=== PATIENT | female | born 1995 | race Caucasian/White ===

== ENCOUNTER 2016-05-20 23:19 | Emergency (ER) | payer SELFPAY ==
[~2016-05-20] VITALS: Ht 170.2 cm; Wt 62.8 kg
[~2016-05-20 23:19] MED LIST: NO HOME MEDICATIONS; PEN-VEE K,VEET500 MG PO; ULTRAM50 MG PO; ZOFRAN ODT4 MG PO
[2016-05-20 23:53] LABS: ADD MIUA? YES; BILIRUBIN NEGATIVE; BLOOD NEGATIVE; COLOR YELLOW ((YELLOW)); GLUCOSE (STRIP) NEGATIVE; KETONES 5; LEUKOCYTES TRACE; NITRITE NEGATIVE; PROTEIN (STRIP) 30; SPECIFIC GRAVITY 1.026 (1.000-1.030); UROBILINOGEN 0.2 MG/DL (0.2-1.0)
[2016-05-21 00:01] LABS: BACTERIA RARE /HPF; EPITHELIAL CELLS 2+ /HPF; MUCUS 2+ /LPF; RED BLOOD CELLS 0-5 /HPF (0-5)
[2016-05-21 00:03] LABS: EOSINOPHIL (%) 3.4 % (0-5); EOSINOPHIL COUNT 0.3 K/uL (0-0.3); HEMATOCRIT 36.1 % (36.0-46.0); IMMATURE GRANULOCYTE (%) 0.2 % (0.0-0.7); INSTRUMENT ABS NEUTROPHIL CT 4.6 K/uL; LYMPHOCYTE COUNT 2.8 K/uL (1.0-2.8); MCH 30.8 PG (29.0-34.0); MCHC 34.1 G/DL (30.0-36.0); MCV 90.5 FL (83-99); MEAN PLAT.VOLUME 10.1 uM^3 (9.5-12.4); MONOCYTE (%) 5.2 % (3-12); MONOCYTE COUNT 0.4 K/uL (0-0.8); NEUTROPHIL COUNT 4.6 K/uL (1.8-6.4); PLATELET COUNT 258 K/uL (156-360); RBC DIS.WIDTH-CV 11.8 % (11.8-14.6); RBC DIS.WIDTH-SD 39.3 % (39-53); RED BLOOD COUNT 3.99 M/uL (3.80-5.20); WHITE BLOOD COUNT 8.2 K/uL (4.1-10.2)
[2016-05-21 00:12] LABS: CHLORIDE 106 mEq/L (99-109); SODIUM 139 mEq/L (136-147)
[2016-05-21 00:14] LABS: GLUCOSE 87 mg/dL (70-99)
[2016-05-21 00:15] LABS: ANION GAP 8 MEQ/L (2-14)
[2016-05-21 00:16] LABS: TOTAL BILIRUBIN 0.2 mg/dL (0.0-1.0)
[2016-05-21 00:17] LABS: ALKALINE PHOSPHATASE 51 IU/L (3-129)
[2016-05-21 00:18] LABS: GFR ESTIMATE (CALCULATED) > 59 mL/min/
[2016-05-21 00:19] LABS: UREA NITROGEN (BUN) 8 mg/dL (9-23)
[2016-05-21 00:21] LABS: LIPASE 16 U/L (1.0-51.0)
[2016-05-21] MEDS ORDERED: VIBRAMYCIN100 MG PO (00:38)
[2016-05-21] MEDS ORDERED: MOTRIN600 MG PO (00:38)
[2016-05-21] MEDS ORDERED: ULTRACET1 TABLET PO (00:38)
[2016-05-21] MEDS ORDERED: FLAGYL500 MG PO (00:50)
[2016-05-21 01:01] VITALS: BP 114/73
[2016-05-21 12:15] LABS: CHLAMYDIA TRACHOMATIS POSITIVE; NEISSERIA GONORRHOEAE NEGATIVE
== END 2016-05-21 01:02 | disposition home or self-care (01) ==
LOC: RME 23:19 → EME 23:19 → RME 05-21 01:02
PROVIDERS: Physician Assistant
DX: N73.9 Female pelvic inflammatory disease, unspecified (principal); R30.0 Dysuria; F17.200 Nicotine dependence, unspecified, uncomplicated
CPT/HCPCS: 80053; 81003; 83690; 85025; 87086; 87210; 87491; 87591; 99281; 99285; J0696

== ENCOUNTER 2016-09-11 15:48 | Emergency (ER) | payer SELFPAY ==
[~2016-09-11] VITALS: Ht 170.2 cm; Wt 64.6 kg
[~2016-09-11 15:48] MED LIST changes: +FLAGYL500 MG PO; +MOTRIN600 MG PO; +ULTRACET1 TABLET PO; +VIBRAMYCIN100 MG PO
[2016-09-11 16:45] LABS: HEMATOCRIT 36.4 % (36.0-46.0); MCHC 35.2 G/DL (30.0-36.0); MEAN PLAT.VOLUME 9.4 uM^3 (9.5-12.4); PLATELET COUNT 239 K/uL (156-360); RBC DIS.WIDTH-CV 12.2 % (11.8-14.6); WHITE BLOOD COUNT 6.7 K/uL (4.1-10.2)
[2016-09-11 16:53] LABS: CHLORIDE 107 mEq/L (99-109); POTASSIUM 3.9 mEq/L (3.7-5.4); SODIUM 140 mEq/L (136-147)
[2016-09-11 16:55] LABS: GLUCOSE 85 mg/dL (70-99)
[2016-09-11 16:56] LABS: ANION GAP 7 MEQ/L (2-14)
[2016-09-11 16:58] LABS: GFR ESTIMATE (CALCULATED) > 59 mL/min/
[2016-09-11 16:59] LABS: UREA NITROGEN (BUN) 6 mg/dL (9-23)
[2016-09-11 18:55] LABS: ADD MIUA? YES; BILIRUBIN NEGATIVE; BLOOD LARGE; GLUCOSE (STRIP) NEGATIVE; KETONES NEGATIVE; LEUKOCYTES MODERATE; NITRITE NEGATIVE; PROTEIN (STRIP) 100; SPECIFIC GRAVITY 1.006 (1.000-1.030); UROBILINOGEN 0.2 MG/DL (0.2-1.0)
[2016-09-11 18:58] LABS: COLOR RED ((YELLOW))
[2016-09-11 19:15] LABS: RED BLOOD CELLS 30-40 /HPF (0-5); WHITE BLOOD CELLS 15-20 /HPF (0-5)
[2016-09-11 19:16] LABS: BACTERIA 2+ /HPF; CASTS NONE SEEN /LPF; CRYSTALS NONE SEEN; EPITHELIAL CELLS 3+ /HPF; MUCUS RARE /LPF; UCUL ADDED? YES
[2016-09-11] MEDS ORDERED: MACROBID100 MG PO (20:35)
[2016-09-11] MEDS ORDERED: PERCOCET 5/31 TABLET PO (20:36)
[2016-09-11 20:41] VITALS: BP 116/74
== END 2016-09-11 20:52 | disposition home or self-care (01) ==
LOC: EME 15:48
DX: O03.9 Complete or unspecified spontaneous abortion without complication (principal); N93.9 Abnormal uterine and vaginal bleeding, unspecified; R11.2 Nausea with vomiting, unspecified; R42 Dizziness and giddiness; F17.200 Nicotine dependence, unspecified, uncomplicated
CPT/HCPCS: 76801; 80048; 81003; 84702; 85027; 86850; 86900; 86901; 87086; 99281; 99285; J2788; J3010; J7030

== ENCOUNTER 2016-09-13 20:23 | Emergency (ER) | payer SELFPAY ==
[~2016-09-13] VITALS: Ht 170.2 cm; Wt 63.5 kg
[~2016-09-13 20:23] MED LIST changes: +MACROBID100 MG PO; +PERCOCET 5/31 TABLET PO
[2016-09-13 21:07] LABS: HEMATOCRIT 32.5 % (36.0-46.0); MCH 31.6 PG (29.0-34.0); MCHC 35.1 G/DL (30.0-36.0); MEAN PLAT.VOLUME 9.7 uM^3 (9.5-12.4); PLATELET COUNT 210 K/uL (156-360); RBC DIS.WIDTH-CV 12.1 % (11.8-14.6); RBC DIS.WIDTH-SD 40.1 % (39-53); RED BLOOD COUNT 3.61 M/uL (3.80-5.20); WHITE BLOOD COUNT 10.5 K/uL (4.1-10.2)
[2016-09-13 21:15] LABS: CHLORIDE 105 mEq/L (99-109); POTASSIUM 3.2 mEq/L (3.7-5.4); SODIUM 138 mEq/L (136-147)
[2016-09-13 21:18] LABS: ANION GAP 10 MEQ/L (2-14)
[2016-09-13 21:20] LABS: GFR ESTIMATE (CALCULATED) > 59 mL/min/
[2016-09-13 21:21] LABS: UREA NITROGEN (BUN) 5 mg/dL (9-23)
[2016-09-13 21:24] LABS: GLUCOSE 107 mg/dL (70-99)
[2016-09-13 21:29] LABS: QUANTITATIVE HCG 126.4 MIU/ML
[2016-09-13 22:11] LABS: ADD MIUA? YES; BILIRUBIN NEGATIVE; BLOOD LARGE; COLOR YELLOW ((YELLOW)); GLUCOSE (STRIP) NEGATIVE; KETONES NEGATIVE; LEUKOCYTES MODERATE; NITRITE NEGATIVE; PROTEIN (STRIP) NEGATIVE; SPECIFIC GRAVITY 1.005 (1.000-1.030); UROBILINOGEN 0.2 MG/DL (0.2-1.0)
[2016-09-13 22:16] LABS: BACTERIA RARE /HPF; EPITHELIAL CELLS RARE /HPF; MUCUS TRACE /LPF; RED BLOOD CELLS 40-50 /HPF (0-5); UCUL ADDED? NO
[2016-09-14 00:14] VITALS: BP 109/81
== END 2016-09-14 00:15 | disposition home or self-care (01) ==
LOC: EME 20:23
PROVIDERS: Physician Assistant
DX: O03.4 Incomplete spontaneous abortion without complication (principal); R55 Syncope and collapse; F17.200 Nicotine dependence, unspecified, uncomplicated
CPT/HCPCS: 76801; 80048; 81003; 84702; 85027; 86870; 86900; 86901; 86905; 86920; 99281; 99285; J2270; J7030

== ENCOUNTER 2016-09-17 08:02 | Day surgery (SDC) | payer SELFPAY ==
[~2016-09-17] VITALS: Ht 170.2 cm; Wt 63.0 kg
[2016-09-17 08:41] VITALS: BP 99/58
[2016-09-17 12:10] VITALS: BP 92/54
[2016-09-17 13:15] VITALS: BP 84/60
[2016-09-17 13:50] VITALS: BP 88/62
== END 2016-09-17 14:10 | disposition home or self-care (01) ==
LOC: SDC 08:02
PROC: 10D17ZZ Extraction of Products of Conception, Retained, Via Natural or Artificial Opening (ICD-10-PCS; principal; 2016-09-17)
DX: O03.4 Incomplete spontaneous abortion without complication (principal); Z3A.08 8 weeks gestation of pregnancy; F17.210 Nicotine dependence, cigarettes, uncomplicated
CPT/HCPCS: 86870; 86900; 86901; 86905; 86920; 88305; J0690; J1100; J1170; J1200; J1885; J2250; J2405; J3010; J7120

== ENCOUNTER 2016-09-19 19:57 | Emergency (ER) | payer SELFPAY ==
[~2016-09-19] VITALS: Ht 170.2 cm; Wt 64.8 kg
[2016-09-19 21:28] LABS: HEMATOCRIT 31.1 % (36.0-46.0); MCH 31.3 PG (29.0-34.0); MCHC 34.4 G/DL (30.0-36.0); MCV 90.9 FL (83-99); MEAN PLAT.VOLUME 9.2 uM^3 (9.5-12.4); PLATELET COUNT 193 K/uL (156-360); RBC DIS.WIDTH-CV 12.3 % (11.8-14.6); RBC DIS.WIDTH-SD 40.8 % (39-53); RED BLOOD COUNT 3.42 M/uL (3.80-5.20); WHITE BLOOD COUNT 8.1 K/uL (4.1-10.2)
[2016-09-19 21:43] LABS: CHLORIDE 101 mEq/L (99-109); POTASSIUM 3.4 mEq/L (3.7-5.4)
[2016-09-19 21:44] LABS: SODIUM 137 mEq/L (136-147)
[2016-09-19 21:46] LABS: GLUCOSE 98 mg/dL (70-99)
[2016-09-19 21:47] LABS: ANION GAP 10 MEQ/L (2-14)
[2016-09-19 21:48] LABS: TOTAL BILIRUBIN 0.1 mg/dL (0.0-1.0)
[2016-09-19 21:49] LABS: ALKALINE PHOSPHATASE 57 IU/L (3-129); GFR ESTIMATE (CALCULATED) > 59 mL/min/
[2016-09-19 21:50] LABS: UREA NITROGEN (BUN) 3 mg/dL (9-23)
[2016-09-19 21:53] LABS: LIPASE 6 U/L (1.0-51.0)
[2016-09-19 22:00] LABS: QUANTITATIVE HCG 20.3 MIU/ML
[2016-09-19 22:59] LABS: SALICYLATE < 5.0 MG/DL (15-30)
[2016-09-20 00:56] LABS: ADD MIUA? YES; BILIRUBIN NEGATIVE; BLOOD LARGE; COLOR YELLOW ((YELLOW)); GLUCOSE (STRIP) NEGATIVE; KETONES NEGATIVE; LEUKOCYTES LARGE; NITRITE NEGATIVE; PROTEIN (STRIP) NEGATIVE; SPECIFIC GRAVITY 1.006 (1.000-1.030); UROBILINOGEN 0.2 MG/DL (0.2-1.0)
[2016-09-20 01:08] LABS: BACTERIA RARE /HPF; EPITHELIAL CELLS RARE /HPF; MUCUS TRACE /LPF; RED BLOOD CELLS 40-50 /HPF (0-5); UCUL ADDED? YES; WHITE BLOOD CELLS TNTC /HPF (0-5)
[2016-09-20] MEDS ORDERED: KEFLEX250 MG PO (01:30)
[2016-09-20] MEDS ORDERED: NORCO 5/3251 TABLET PO (01:30)
[2016-09-20 02:03] VITALS: BP 101/66
== END 2016-09-20 02:05 | disposition home or self-care (01) ==
LOC: EME 19:57
DX: N39.0 Urinary tract infection, site not specified (principal); N83.202 Unspecified ovarian cyst, left side; F17.200 Nicotine dependence, unspecified, uncomplicated
CPT/HCPCS: 74177; 76856; 80053; 81003; 83690; 84702; 85027; 87086; 99281; 99285; G0480; J2270; J2405; J7030

== ENCOUNTER 2016-09-25 15:16 | Emergency (ER) | payer SELFPAY ==
[~2016-09-25] VITALS: Ht 170.2 cm; Wt 62.8 kg
[~2016-09-25 15:16] MED LIST changes: +KEFLEX250 MG PO; +NORCO 5/3251 TABLET PO
[2016-09-25 17:11] LABS: ADD MIUA? YES; BILIRUBIN NEGATIVE; BLOOD MODERATE; COLOR AMBER ((YELLOW)); GLUCOSE (STRIP) NEGATIVE; KETONES NEGATIVE; LEUKOCYTES LARGE; NITRITE NEGATIVE; PROTEIN (STRIP) 100; SPECIFIC GRAVITY 1.014 (1.000-1.030); UROBILINOGEN 0.2 MG/DL (0.2-1.0)
[2016-09-25 17:18] LABS: HEMATOCRIT 33.4 % (36.0-46.0); MCH 31.4 PG (29.0-34.0); MCHC 34.4 G/DL (30.0-36.0); MCV 91.3 FL (83-99); MEAN PLAT.VOLUME 9.1 uM^3 (9.5-12.4); PLATELET COUNT 290 K/uL (156-360); RBC DIS.WIDTH-CV 12.1 % (11.8-14.6); RBC DIS.WIDTH-SD 40.9 % (39-53); RED BLOOD COUNT 3.66 M/uL (3.80-5.20); WHITE BLOOD COUNT 9.9 K/uL (4.1-10.2)
[2016-09-25 17:19] LABS: CHLORIDE 104 mEq/L (99-109); SODIUM 139 mEq/L (136-147)
[2016-09-25 17:21] LABS: GLUCOSE 92 mg/dL (70-99)
[2016-09-25 17:22] LABS: ANION GAP 11 MEQ/L (2-14)
[2016-09-25 17:25] LABS: ALKALINE PHOSPHATASE 70 IU/L (3-129); GFR ESTIMATE (CALCULATED) > 59 mL/min/
[2016-09-25 17:26] LABS: UREA NITROGEN (BUN) 5 mg/dL (9-23)
[2016-09-25 17:29] LABS: POTASSIUM 4.5 mEq/L (3.7-5.4); TOTAL BILIRUBIN 0.2 mg/dL (0.0-1.0)
[2016-09-25 17:33] LABS: QUANTITATIVE HCG 6.8 MIU/ML
[2016-09-25 17:37] LABS: BACTERIA 1+ /HPF; EPITHELIAL CELLS 1+ /HPF; MUCUS NONE SEEN /LPF; UCUL ADDED? YES; WHITE BLOOD CELLS TNTC /HPF (0-5)
[2016-09-25] MEDS ORDERED: ZOFRAN ODT4 MG PO (18:41)
[2016-09-25] MEDS ORDERED: VIBRAMYCIN100 MG PO (18:41)
[2016-09-25] MEDS ORDERED: NAPROSYN500 MG PO (18:47)
[2016-09-25 19:05] VITALS: BP 114/73
[2016-09-27 14:04] LABS: CHLAMYDIA TRACHOMATIS POSITIVE; NEISSERIA GONORRHOEAE NEGATIVE
== END 2016-09-25 19:07 | disposition home or self-care (01) ==
LOC: EME 15:16
PROVIDERS: Physician Assistant
DX: N73.9 Female pelvic inflammatory disease, unspecified (principal); D64.9 Anemia, unspecified; N39.0 Urinary tract infection, site not specified; N83.202 Unspecified ovarian cyst, left side; F17.200 Nicotine dependence, unspecified, uncomplicated
CPT/HCPCS: 76856; 80053; 81003; 84702; 85027; 87086; 87210; 87491; 87591; 99281; 99284; J0696; J3010

== ENCOUNTER 2016-11-17 19:22 | Emergency (ER) | payer SELFPAY ==
[~2016-11-17] VITALS: Ht 170.2 cm; Wt 65.4 kg
[~2016-11-17 19:22] MED LIST changes: +NAPROSYN500 MG PO
[2016-11-17] MEDS ORDERED: AUGMENTIN875 MG PO (21:16)
[2016-11-17] MEDS ORDERED: INDOCIN25 MG PO (21:16)
[2016-11-17] MEDS ORDERED: INDOCIN50 MG PO (21:21)
[2016-11-17 21:48] VITALS: BP 119/79
== END 2016-11-17 21:48 | disposition home or self-care (01) ==
LOC: EME 19:22
DX: K11.20 Sialoadenitis, unspecified (principal); R11.0 Nausea; F17.200 Nicotine dependence, unspecified, uncomplicated
CPT/HCPCS: 99281; 99283

== ENCOUNTER 2017-01-22 20:12 | Emergency (ER) | payer OTHER ==
[~2017-01-22] VITALS: Ht 165.1 cm; Wt 63.5 kg
[~2017-01-22 20:12] MED LIST changes: +AUGMENTIN875 MG PO; +INDOCIN25 MG PO; +INDOCIN50 MG PO
[2017-01-22 20:46] LABS: MCH 31.2 PG (29.0-34.0); MCHC 35.1 G/DL (30.0-36.0); MCV 88.9 FL (83-99); MEAN PLAT.VOLUME 10.3 uM^3 (9.5-12.4); PLATELET COUNT 238 K/uL (156-360); RBC DIS.WIDTH-CV 12.6 % (11.8-14.6); RBC DIS.WIDTH-SD 40.9 % (39-53); RED BLOOD COUNT 4.61 M/uL (3.80-5.20); WHITE BLOOD COUNT 6.1 K/uL (4.1-10.2)
[2017-01-22 20:57] LABS: CHLORIDE 105 mEq/L (99-109); POTASSIUM 3.3 mEq/L (3.7-5.4); SODIUM 139 mEq/L (136-147)
[2017-01-22 20:58] LABS: GLUCOSE 102 mg/dL (70-99)
[2017-01-22 21:00] LABS: ANION GAP 10 MEQ/L (2-14)
[2017-01-22 21:02] LABS: GFR ESTIMATE (CALCULATED) > 59 mL/min/
[2017-01-22 21:03] LABS: UREA NITROGEN (BUN) 6 mg/dL (9-23)
[2017-01-22 21:10] LABS: QUANTITATIVE HCG < 4.0 MIU/ML
[2017-01-22] MEDS ORDERED: ZOFRAN4 MG PO (23:24)
[2017-01-22 23:33] VITALS: BP 106/74
== END 2017-01-22 23:55 | disposition home or self-care (01) ==
LOC: EME 20:12
DX: R55 Syncope and collapse (principal); N83.202 Unspecified ovarian cyst, left side; E87.6 Hypokalemia; R11.2 Nausea with vomiting, unspecified; F17.200 Nicotine dependence, unspecified, uncomplicated
CPT/HCPCS: 74177; 76856; 80048; 84702; 85027; 93005; 99281; 99284; J7030

== ENCOUNTER 2017-04-01 16:26 | Emergency (ER) | payer OTHER ==
[~2017-04-01] VITALS: Ht 170.2 cm; Wt 63.9 kg
[~2017-04-01 16:26] MED LIST changes: +ZOFRAN4 MG PO
[2017-04-01 17:09] LABS: HEMATOCRIT 36.3 % (36.0-46.0); HEMOGLOBIN 12.7 G/DL (11.9-15.5); MCH 32.2 PG (29.0-34.0); MCV 91.9 FL (83-99); PLATELET COUNT 218 K/uL (156-360); RBC DIS.WIDTH-CV 12.1 % (11.8-14.6); RBC DIS.WIDTH-SD 41.3 % (39-53); RED BLOOD COUNT 3.95 M/uL (3.80-5.20); WHITE BLOOD COUNT 9.5 K/uL (4.1-10.2)
[2017-04-01 20:55] LABS: APPEARANCE SL.HAZY ((CLEAR)); BILIRUBIN NEGATIVE; BLOOD LARGE; COLOR YELLOW ((YELLOW)); GLUCOSE (STRIP) NEGATIVE; KETONES 20; LEUKOCYTES MODERATE; NITRITE NEGATIVE; PROTEIN (STRIP) NEGATIVE; SPECIFIC GRAVITY 1.024 (1.000-1.030); UROBILINOGEN 0.2 MG/DL (0.2-1.0)
[2017-04-01 21:08] LABS: BACTERIA RARE /HPF; EPITHELIAL CELLS 1+ /HPF; MUCUS TRACE /LPF; RED BLOOD CELLS 20-30 /HPF (0-5); UCUL ADDED? YES
[2017-04-01] MEDS ORDERED: KEFLEX500 MG PO (21:53)
[2017-04-01 22:16] VITALS: BP 110/78
[2017-04-05] MEDS ORDERED: PRENATAL TABLE1 EAC3 PO (12:43)
== END 2017-04-01 22:17 | disposition home or self-care (01) ==
LOC: EME 16:26
DX: O20.0 Threatened abortion (principal); O23.41 Unspecified infection of urinary tract in pregnancy, first trimester; Z3A.01 Less than 8 weeks gestation of pregnancy; O99.331 Smoking (tobacco) complicating pregnancy, first trimester; F17.200 Nicotine dependence, unspecified, uncomplicated
CPT/HCPCS: 76801; 81003; 84702; 85027; 87086; 99281; 99284

== ENCOUNTER → 2017-04-05 | Outpatient (CLI) | payer OTHER ==
[~2017-04-05] VITALS: Ht 170.2 cm; Wt 62.9 kg
[~2017-04-05] MED LIST changes: +KEFLEX500 MG PO; +PRENATAL TABLE1 EAC3 PO
[2017-04-05 12:46] VITALS: BP 143/71
== END | disposition home or self-care (01) ==
LOC: IVINF 09:30
DX: O26.851 Spotting complicating pregnancy, first trimester (principal); Z3A.01 Less than 8 weeks gestation of pregnancy; Z67.11 Type A blood, Rh negative
CPT/HCPCS: 96372; J2790

== ENCOUNTER → 2017-09-21 | Outpatient (CLI) | payer OTHER ==
[~2017-09-21] VITALS: Ht 170.2 cm; Wt 66.0 kg
[2017-09-21 13:48] VITALS: BP 107/64
== END | disposition home or self-care (01) ==
LOC: IVINF 09-06 15:00
DX: Z34.93 Encounter for supervision of normal pregnancy, unspecified, third trimester (principal); Z29.13 Encounter for prophylactic Rho(D) immune globulin; Z3A.28 28 weeks gestation of pregnancy
CPT/HCPCS: 96372; J2790